=== PATIENT | male | born 1995 | race Hispanic/Latino ===

== ENCOUNTER → 2017-09-18 | Day surgery (SDC) | payer OTHER ==
[~2017-09-18] MED LIST: BUPIVACAINE 0.5%/EPI 30 ML SDV INJ ONE; CEFAZOLIN SOD 2 GM/D5W 50ML 50 ML IV ONE; DEXAMETHASONE SOD PHOS INJ 4 MG/ML VIAL ONE; FENTANYL CITRATE/PF 100MCG/2 ML INJ ONE; KETOROLAC TROMETHAMINE 30 MG/ML VIAL ONE; LIDOCAINE HCL 2% LOCAL INJ 5 ML SDV VIAL INJ ONE; MIDAZOLAM HCL 2 MG/2 ML VIAL ONE; ONDANSETRON HCL INJ 2 MG/ML VIAL ONE; PROPOFOL IV EMULSION 10 MG/ML 20 ML VIAL ONE; SEVOFLURANE INHAL SOLN 250 ML PEN BTL ONE
--- NOTE | 2017-09-21 18:35 | Operative Report ---
DATE OF PROCEDURE: September 18, 2017 PREOPERATIVE DIAGNOSES 1. Persistent right knee pain. 2. Possible occult medial meniscus tear. POSTOPERATIVE DIAGNOSES 1. Right knee pain. 2. Chondromalacia of the patella, medial femoral condyle, and medial tibial plateau. OPERATIONS/PROCEDURES PERFORMED 1. Patient underwent a right knee diagnostic arthroscopy. 2. Right knee chondroplasty of the patella, medial femoral condyle, and medial tibial plateau. ANESTHESIA: General endotracheal intubation anesthesia. IV FLUIDS: As per the anesthesia record. BRIEF DESCRIPTION OF OPERATIVE PROCEDURE: Mr. Serrano was taken to the operating room and placed in supine position on the operating table. Following induction of general anesthesia as well as endotracheal intubation, the patient's right lower extremity was examined under anesthesia. He was found to have full passive range of motion of the knee joint. There was no evidence of an effusion within the knee. There was no ligamentous instability. The patient's lower extremity was prepped and draped in standard surgical fashion. A 2-portal technique was used to provide this patient arthroscopic evaluation of the knee joint. Examination of the suprapatellar pouch and medial and lateral gutters found no evidence of loose bodies. There was; however, evidence of chondromalacia of the patella. Scope was advanced in medial compartment. Examination of medial compartment demonstrated chondromalacia of articulating surfaces. The medial meniscus was thoroughly examined and there was no evidence of a medial meniscus tear. Chondroplasties of the medial femoral condyle and medial tibial plateau were performed at this time. Scope was advanced to the intercondylar notch and the anterior cruciate ligament was identified and found to be intact. Scope was advanced in lateral compartment and there was no gross pathology. Scope was then placed in suprapatellar pouch and chondroplasty of the patella was performed. The knee was deflated of its sterile normal saline. The portal sites were closed using 4-0 nylon suture. Portal sites as well as the knee itself were then injected with 0.5% Marcaine with epinephrine. Sterile dressings were applied. The patient was awakened and taken to postanesthesia care unit in stable condition. Job#: [id number] PKU
== END | disposition home or self-care (01) ==
LOC: OR 12:36
PROVIDERS: ATTEND Specialist
DX: M22.41 Chondromalacia patellae, right knee (principal); I10 Essential (primary) hypertension; R00.1 Bradycardia, unspecified; X58.XXXA Exposure to other specified factors, initial encounter; Z01.810 Encounter for preprocedural cardiovascular examination; Z68.38 Body mass index [BMI] 38.0-38.9, adult
CPT/HCPCS: 29877; 93005; J1100; J1885; J2001; J2250; J2405

== ENCOUNTER 2021-01-22 22:29 | Emergency (ER) | payer SELFPAY ==
[~2021-01-22] VITALS: Ht 175.3 cm; Wt 124.3 kg
[2021-01-22] MEDS ORDERED: ONDANSETRON HCL INJ 2MG/ML 2ML 2 MG/ML VIAL IV STA (23:12)
[2021-01-22] MEDS ORDERED: KETOROLAC TROMETHAMINE 30 MG/ML VIAL IV STA (23:12)
[2021-01-22] MEDS ORDERED: FAMOTIDINE 20 MG/2 ML VIAL IV STA (23:12)
[2021-01-22] MEDS ORDERED: SODIUM CHLORIDE 0.9% 1000ML 1,000 ML IV SCH (23:15)
[2021-01-22] MEDS ORDERED: ONDANSETRON HCL INJ 2MG/ML 2ML 2 MG/ML VIAL ONE (23:25)
[2021-01-22] MEDS ORDERED: FAMOTIDINE 20 MG/2 ML VIAL IV ONE (23:25)
[2021-01-22] MEDS ORDERED: SODIUM CHLORIDE 0.9% 1000ML 1,000 ML ONE (23:25)
[2021-01-22] MEDS ORDERED: KETOROLAC TROMETHAMINE 30 MG/ML VIAL ONE (23:41)
[2021-01-22] MEDS ORDERED: ONDANSETRON ODT4 MG PO (23:58)
[2021-01-22] MEDS ORDERED: LEVSIN-SL0.125 MG SL (23:59)
[2021-01-23 00:20] VITALS: BP 156/89
== END 2021-01-23 00:20 | disposition home or self-care (01) ==
LOC: FSED 22:53
DX: R11.2 Nausea with vomiting, unspecified (principal); K52.9 Noninfective gastroenteritis and colitis, unspecified; E86.0 Dehydration
CPT/HCPCS: 80048; 80076; 81003; 85025; 87400; 96374; 96375; 96376; 99283; J1885; J2405; J7030

== ENCOUNTER 2021-07-30 16:12 | Emergency (ER) | payer SELFPAY ==
[~2021-07-30] VITALS: Ht 175.3 cm; Wt 124.3 kg
[~2021-07-30 16:12] MED LIST changes: -BUPIVACAINE 0.5%/EPI 30 ML SDV INJ ONE; -CEFAZOLIN SOD 2 GM/D5W 50ML 50 ML IV ONE; -DEXAMETHASONE SOD PHOS INJ 4 MG/ML VIAL ONE; -FENTANYL CITRATE/PF 100MCG/2 ML INJ ONE; -KETOROLAC TROMETHAMINE 30 MG/ML VIAL ONE; +LEVSIN-SL0.125 MG SL; -LIDOCAINE HCL 2% LOCAL INJ 5 ML SDV VIAL INJ ONE; -MIDAZOLAM HCL 2 MG/2 ML VIAL ONE; -ONDANSETRON HCL INJ 2 MG/ML VIAL ONE; +ONDANSETRON ODT4 MG PO; -PROPOFOL IV EMULSION 10 MG/ML 20 ML VIAL ONE; -SEVOFLURANE INHAL SOLN 250 ML PEN BTL ONE
[2021-07-30] MEDS ORDERED: SODIUM CHLORIDE 0.9% 1000ML 1,000 ML IV STA (16:30)
[2021-07-30] MEDS ORDERED: KETOROLAC TROMETHAMINE 30 MG/ML VIAL IV ONE (16:45)
[2021-07-30] MEDS ORDERED: ONDANSETRON HCL INJ 2MG/ML 2ML 2 MG/ML VIAL IV ONE (16:45)
[2021-07-30 16:46] LABS: BASOPHILS # (AUTO) 0.1 (0.0-0.1); BASOPHILS % 0.6 % (0.0-1.0); EOSINOPHILS # (AUTO) 0.3 (0.0-0.4); HEMATOCRIT 42.4 % (38.2-49.6); LYMPHOCYTES % 21.7 % (18.0-39.1); MEAN CORPUSCULAR HEMOGLOBIN 28.9 pg (28-32); MEAN CORPUSCULAR VOLUME 87.6 fL (81-99); MONOCYTES % 7.5 % (4.4-11.3); NEUTROPHILS # (AUTO) 9.3 (2.1-6.9); NEUTROPHILS % 67.9 % (38.7-80.0); PLATELET COUNT 404 x10e3/uL (140-360); RED BLOOD COUNT 4.84 x10e6/uL (4.3-5.7); RED CELL DISTRIBUTION WIDTH 12.1 % (11.7-14.4)
[2021-07-30 17:06] LABS: ALBUMIN 4.1 g/dL (3.5-5.0); ANION GAP 15.8 mmol/L (8-16); CALCIUM 9.8 mg/dL (8.4-10.2); CREATININE, SERUM 0.78 mg/dL (0.72-1.25); MAGNESIUM 1.9 MG/DL (1.3-2.1); POTASSIUM 3.8 mmol/L (3.5-5.1)
[2021-07-30] MEDS ORDERED: IOPAMIDOL 370 MG/ML 100 ML INFUS..BTL INJ ONE (17:15)
[2021-07-30 17:41] LABS: CLARITY,URINE CLEAR (CLEAR); COLOR,URINE YELLOW (YELLOW); KETONES,URINE NEGATIVE (NEGATIVE); LEUKOCYTE ESTERASE ,URINE NEGATIVE (NEGATIVE); NITRITE,URINE NEGATIVE (NEGATIVE); PROTEIN,URINE DIPSTICK NEGATIVE (NEGATIVE); URINE UROBILINOGEN 0.2 mg/dL (0.2 - 1)
[2021-07-30 17:55] LABS: BACTERIA,URINE FEW /HPF; EPITHELIAL CELLS,URINE RARE /LPF; MUCUS,URINE MODERATE (RARE); RBC,URINE 0-5 /HPF (0-5)
[2021-07-30] MEDS ORDERED: METRONIDAZOLE500 MG PO (18:01)
[2021-07-30] MEDS ORDERED: CIPRO500 MG PO (18:01)
[2021-07-30] MEDS ORDERED: ONDANSETRON ODT4 MG PO (18:01)
[2021-07-30] MEDS ORDERED: HYDROCODON-ACE1 EAC9 PO (18:01)
[2021-07-30 18:09] VITALS: BP 134/118
== END 2021-07-30 18:16 | disposition home or self-care (01) ==
LOC: ER 17:05
DX: R10.32 Left lower quadrant pain (principal); K57.32 Diverticulitis of large intestine without perforation or abscess without bleeding; R11.0 Nausea
CPT/HCPCS: 36415; 74177; 80053; 81001; 83690; 83735; 85025; 87086; 99284; J1885; J7030; Q9967

== ENCOUNTER 2021-11-06 08:41 | Emergency (ER) | payer BC, OTHER ==
[~2021-11-06] VITALS: Ht 175.3 cm; Wt 124.3 kg
[~2021-11-06 08:41] MED LIST changes: +CIPRO500 MG PO; +HYDROCODON-ACE1 EAC9 PO; +METRONIDAZOLE500 MG PO
== END 2021-11-06 09:15 | disposition home or self-care (01) ==
LOC: ER 08:46
DX: M25.561 Pain in right knee (principal); S83.8X1A Sprain of other specified parts of right knee, initial encounter; X50.1XXA Overexertion from prolonged static or awkward postures, initial encounter; Y93.01 Activity, walking, marching and hiking; Y92.89 Other specified places as the place of occurrence of the external cause
CPT/HCPCS: 99282

== ENCOUNTER 2022-01-26 16:35 | Emergency (ER) | payer BC ==
[~2022-01-26] VITALS: Ht 175.3 cm; Wt 131.6 kg
[2022-01-26] MEDS ORDERED: DIPHENHYDRAMINE25 MG PO (16:50)
[2022-01-26] MEDS ORDERED: PREDNISONE50 MG PO (16:50)
[2022-01-26] MEDS ORDERED: PEPCID20 MG PO (16:50)
[2022-01-26] MEDS ORDERED: FAMOTIDINE 20 MG/2 ML VIAL IV STA (16:51)
[2022-01-26] MEDS ORDERED: METHYLPREDNISOLONE SOD SUCC 125 MG/2ML VIAL ONE (17:00)
[2022-01-26] MEDS ORDERED: DIPHENHYDRAMINE HCL INJ 50 MG/ML VIAL IV ONE (17:00)
[2022-01-26] MEDS ORDERED: METHYLPREDNISOLONE SOD SUCC 125 MG/2ML VIAL IV ONE (17:00)
[2022-01-26] MEDS ORDERED: DIPHENHYDRAMINE HCL INJ 50 MG/ML VIAL ONE (17:01)
[2022-01-26] MEDS ORDERED: EPINEPHRINE HCL 1:1000 1ML 1 MG/ML AMP ONE (17:01)
[2022-01-26] MEDS ORDERED: FAMOTIDINE 20 MG/2 ML VIAL IV ONE (17:01)
== END 2022-01-26 17:27 | disposition home or self-care (01) ==
LOC: FSED 16:43
DX: R21 Rash and other nonspecific skin eruption (principal); L29.9 Pruritus, unspecified; T36.8X5A Adverse effect of other systemic antibiotics, initial encounter
CPT/HCPCS: 96374; 96375; 99283; J1200; J2930; J0171

== ENCOUNTER 2022-02-13 02:08 | Emergency (ER) | payer BC ==
[~2022-02-13] VITALS: Ht 175.3 cm; Wt 131.5 kg
[~2022-02-13 02:08] MED LIST changes: +DIPHENHYDRAMINE25 MG PO; +PEPCID20 MG PO; +PREDNISONE50 MG PO
[2022-02-13] MEDS ORDERED: CLEOCIN HCL300 MG PO (03:03)
== END 2022-02-13 03:47 | disposition home or self-care (01) ==
LOC: FSED 02:59
DX: J02.0 Streptococcal pharyngitis (principal); Z88.1 Allergy status to other antibiotic agents; Z88.8 Allergy status to other drugs, medicaments and biological substances
CPT/HCPCS: 99283